=== PATIENT | female | born 1950 | race Caucasian/White ===

== ENCOUNTER 2017-01-29 05:35 | Inpatient (IN) ==
--- NOTE | 2017-01-27 08:38 | HISTORY AND PHYSICAL ---
DATE OF SURGERY: 01/29/2017. HISTORY: Patient is a 66-year-old female referred to me by Dr. Megan Sandoval who has total eversion of the vaginal cuff with a very large broad-based defect proximally. Patient had ulceration of the external vaginal tissue and has been using a pessary over the last several weeks to help her with her defect. However, the patient is strongly desiring to proceed with surgical intervention because of her age being young and her activity level. The patient wishes to proceed to surgical intervention. PAST MEDICAL HISTORY: Positive for a history of rheumatic fever, congestive heart failure, a history of pulmonary emboli with an IVC being placed. PAST SURGICAL HISTORY: Positive for abdominal hysterectomy, exploratory laparotomy for small bowel obstruction, bilateral salpingo-oophorectomy, and appendectomy. DISTRICT SALES REPRESENTATIVE HISTORY: She is noted to be a para 5-0-0-5. ALLERGIES: Codeine. CURRENT MEDICATIONS: Atorvastatin 10, Lasix 40, potassium 10 mEq. FAMILY HISTORY: Positive for colon cancer in her father. SOCIAL HISTORY: Positive for tobacco but stopped 4 years ago. Negative ETOH or drugs. REVIEW OF SYSTEMS: Negative except as above. PHYSICAL EXAMINATION: HEENT: Normocephalic, atraumatic. PERRLA. EOMI. No thyromegaly. CV: Regular rate and rhythm without murmur, gallop, or rub. PULMONARY: Clear. ABDOMEN: Obese with multiple well-healed incisions. : Shows total eversion of the vaginal cuff with a small polyp of the vaginal tissue noted on the right. There are no erosions noted at this time. NEUROLOGIC: Afocal. EXTREMITIES: Without clubbing or cyanosis but she does have edema. VITAL SIGNS: Her BMI was noted to be 33. ASSESSMENT/PLAN: Patient with advanced stage prolapse/total eversion of the vaginal cuff, who is currently being managed with pessary and is wishing to proceed to surgical intervention. The risks and benefits were discussed at length. She understands and is admitted at this time for colpectomy and mid urethral sling with Obtryx. cc: Brandon Fuentes MD
[2017-01-27 10:16] LABS: MANUAL DIFF NEEDED? NO
[2017-01-27 10:23] LABS: BASO% 0.4 % (0.0-0.8); EOS# 0.24 X1000 (0.0-0.7); EOS% 3.3 % (0.0-10.0); HEMATOCRIT 42.7 % (37.0-47.0); IMM GRAN# 0.01 X1000 (0.0-0.04); IMM GRAN% 0.1 % (0.0-0.5); LYMPH# 1.54 X1000 (1.2-3.4); LYMPH% 20.9 % (20.5-51.1); MCH 31.2 PG (27-31); MCHC 32.8 g/dL (33-37); MCV 95.1 FL (81-99); MONO# 0.64 X1000 (0.11-0.59); MONO% 8.7 % (1.7-9.3); MPV 10.2 FL (7.4-10.4); NEUT% 66.6 % (42.2-75.2); PLT 196 X1000 (130-400); RBC 4.49 XMIL (4.2-5.4)
[2017-01-29] MEDS ORDERED: LR 1,000 ML IV SCH (06:35)
[2017-01-29] MEDS ORDERED: PEPCID IV ONE (07:30)
[2017-01-29] MEDS ORDERED: FENTANYL ONE (07:57)
[2017-01-29] MEDS ORDERED: DIPRIVAN 1% ONE (07:58)
[2017-01-29 08:22] LABS: AGAP 9; BUN 18 mg/dL (8-22); CALCIUM 9.3 mg/dL (8.8-10.2); CHLORIDE 102 mmol/L (98-107); COSMO 281; POTASSIUM 3.8 mmol/L (3.5-5.1); SODIUM 139 mmol/L (136-145); TCO2 28 mmol/L (25-35)
[2017-01-29] MEDS ORDERED: SODIUM CHLORIDE 0.9% ONE ×2 (08:48→10:12)
[2017-01-29] MEDS ORDERED: D10W 500 ML ONE (08:48)
[2017-01-29] MEDS ORDERED: SENSORCAINE 0.25%/EPI 1:200,000 ONE ×3 (08:48→10:12)
--- NOTE | 2017-01-29 08:48 | Diag Imaging Result Doc PS360 ---
EXAM: CHEST-PORTABLE HISTORY: hx chf TECHNIQUE: Single view of the chest was performed portably. COMPARISON: None. FINDINGS: The cardiomediastinal silhouette is within normal limits. The pulmonary vasculature is not congested. No infiltrate, effusion, or pneumothorax is appreciated. IMPRESSION: No acute cardiopulmonary abnormality is identified. Electronically signed by Carmen Covington 01/29/2017 8:45 AM
[2017-01-29] MEDS ORDERED: KEFZOL 1 GM/D5W 1 GM/50 ML IVPB ONE (08:57)
[2017-01-29] MEDS ORDERED: TORADOL ONE (09:16)
[2017-01-29] MEDS ORDERED: ZOFRAN ONE (09:17)
[2017-01-29] MEDS ORDERED: EPHEDRINE ONE (09:29)
[2017-01-29] MEDS ORDERED: SODIUM CHLORIDE 0.9% 50 ML ONE (09:30)
[2017-01-29] MEDS ORDERED: QUELICIN (DOSE) ONE ×2 (09:44→09:46)
[2017-01-29] MEDS ORDERED: LASIX ONE (09:48)
[2017-01-29] MEDS ORDERED: ZEMURON ONE (10:00)
--- NOTE | 2017-01-29 10:13 | EKG Report ---
Test Performed on : 01/29/2017 08:59:49 AM Test Reason : pre op Blood Pressure : / mmHG Vent. Rate : 085 BPM Atrial Rate : 085 BPM P-R Int : 206 ms QRS Dur : 098 ms QT Int : 422 ms P-R-T Axes : 065 -02 067 degrees QTc Int : 502 ms Normal sinus rhythm. Nonspecific ST and T wave abnormality Prolonged QT Abnormal ECG No previous ECGs available Unconfirmed Result
[2017-01-29] MEDS ORDERED: ROBINUL ONE ×2 (11:07→11:12)
[2017-01-29] MEDS ORDERED: NEOSTIGMINE ONE ×2 (11:07→11:13)
[2017-01-29] MEDS ORDERED: NS 1,000 ML ONE (11:11)
[2017-01-29] MEDS ORDERED: NORCO-5 PO PRN (12:54)
[2017-01-29] MEDS ORDERED: ZOFRAN ODT PO PRN (12:54)
[2017-01-29] MEDS: LR 1,000 ML IV SCH ×2 (13:00→20:57)
--- NOTE | 2017-01-29 15:14 | OPERATIVE NOTE ---
PROCEDURE DATE: 01/29/2017 PREOPERATIVE DIAGNOSIS: Total vault eversion. POSTOPERATIVE DIAGNOSIS: Total vault eversion, very large enterocele. PROCEDURE: Colpectomy, enterocele repair, mid urethral sling with Obtryx and perineorrhaphy. SURGEON: Dr. Brandon Fuentes. CREW LEADER/CONTROL ROOM OPERATOR: Ryan Cox. ANESTHESIA: General. ESTIMATED BLOOD LOSS: 125 mL. HISTORY: The patient is a 66-year-old female, referred to me for from Dr. Megan Sandoval in the [facility]. The patient was having increasing problems with symptomatic pelvic organ prolapse and, upon discussion with the patient's in the postoperative period he stated that this had been a problem for over 20 years now. We have managed her initially with pessary, however, the day after her pessary had been placed, she had expulsion of the largest Gellhorn pessary with defecation and so the decision was made to proceed to surgical intervention. The patient had an extremely large defect that was very broad-based. The actual tissue outside of the body measured 16 cm and the width of the defect was approximately 12. Genital hiatus was approximately 15 cm. Because of this defect, we had explained to the patient increased risk for possible ureteral injury, and she and her understood and they wished to proceed. OPERATIVE FINDINGS: Consistent with above, however, she was also found to have a very large broad- based enterocele measuring at least 12 cm across the neck of the defect. No other abnormalities beyond what is described. OPERATIVE PROCEDURE: Patient was taken to the operating room and placed ini the supine position. After adequate general anesthesia obtained, she is placed in candy cane stirrups and the defect in the vagina and perineum area was prepped and draped in the usual fashion. The defect was extremely large and extremely wide. We initially started at the apex. She had several areas of ulceration from the length of time this had been outside of her body, and she had a lot of cornification of the tissue throughout. We grasped the defect at the apex with Allis clamps, and we injected approximately 50 mL of 0.25% Marcaine with epinephrine diluted 50% with normal saline in a split-thickness dissection fashion. We had already demarcated the extent of our dissections up to UV neck as well as to the perineal body. We had divided the vagina into quadrants using a marking pen. After doing all this, we then started initially in the anterior compartment with the scalpel following our lines, and we began with our dissection. Using traction and counter traction and a lot of sharp dissection, we were able to dissect off the anterior quadrants. The posterior dissection, as we began very easily entered into the enterocele sac, and we discovered that her defect going up was extremely wide and so decision was made to go ahead and dissect out the entire enterocele sac so that we could try to get better support apically. We changed our dissection layering in the rectovaginal space and then developed a new plane of dissection dissecting out the enterocele sac from the posterior portion and then going up to the UV neck. We did not dissect the enterocele sac off of the bladder. I felt that it was too dangerous to do this with the possibility of having some resultant cystotomy. So upon doing this, we then went to the apex of the neck and using 5-6 layers of Tycron suture, we closed the neck down tying a pursestring-type of fashion. Upon doing this, we then had just the vaginal mucosa posteriorly and the bladder and enterocele sac anteriorly. So, at this point, we then turned our attention towards correction of the defect using a 2.0 Vicryl ligature. We closed the defect in a pursestring fashion at the same level throughout until we had complete imbrication of the defect. We had to take smaller bites in the posterior portion and much larger bites in terms of width between concentric closure sutures in order to make up the large defect anteriorly. Upon doing this, before closing the vaginal mucosa, we performed cystoscopy to ensure that both ureters were effluxing just because of the significance of her defect and we could easily see efflux of urine from both defects. After completion of this, we then closed anterior to posterior the vaginal mucosa. We had complete resolution of the defect. At this time, we then turned our attention towards placement of the sling. The urethra was grasped proximally and distally and another 10 mL of the diluent was injected. I think her total injection amount was approximately 140 mL. Upon doing this, we dissected towards the ischial pubic ramus on each side and then based on the bony landmarks of the obturator foramen and the insertion of the adductor longus, a stab incision was made on the left-hand side. A halo device was introduced through this incision into the head turning machine operator's finger through the obturator membrane and the finger directed the needle out of the vaginal incision. The mesh was attached to it and it was retracted back through the skin. This was performed on the contralateral side in a similar fashion. Cystoscope was reintroduced and again both ureters refluxing there was no evidence of any mesh whatsoever or any other abnormalities of the bladder mucosa other than the redundancy of the mucosa from being corrected. The cystoscope was removed and the Yana clamp was placed in the mid urethral position. The tape was brought out with the Yana clamp. Blue tag was excised. The sheaths were easily removed. Mid urethral incision was then closed with running 2.0 Vicryl ligature. We then turned our attention towards closing down the genital hiatus. Her hiatus was easily 14-16 cm starting out so we made a marko-shaped incision after infiltration of this area with the same diluent. We dissected out the distal levators as well as the bulbocavernosus muscles and, upon doing this, we then plicated this area with interrupted [id number] sutures using 0 Vicryl ligature. The remaining portion was then similar to a second-degree episiotomy which was repaired with 2.0 Vicryl ligature in the typical fashion. A Flores catheter was placed. Sponge count, instrument count, needle counts correct x3. Packs and drains were Flores. Patient was awakened and taken to the recovery room with vital signs stable. cc: Brandon Fuentes MD
[2017-01-29] MEDS ORDERED: ULTRACET 37.5MG/325MG PO PRN (17:00)
--- NOTE | 2017-01-29 17:17 | PROGRESS NOTE ---
DATE: 01/29/2017 TIME: Approximately 4:50 p.m. SUBJECTIVE: Patient is sitting up on the side of bed and eating dinner, stating that it is tasting good and having no problems. OBJECTIVE: Afebrile. Vital signs stable. Urine output is clear. ASSESSMENT AND PLAN: Routine postoperative care. Voiding trial in the a.m. DC home in the a.m. after completion of voiding trial. cc: Brandon Fuentes MD
[2017-01-29] MEDS: TORADOL IV SCH (18:12)
[2017-01-29] MEDS: COLACE PO SCH (20:58)
[2017-01-29] MEDS: PERIDEX MT SCH (20:58)
[2017-01-29] MEDS ORDERED: LIPITOR PO SCH (21:00)
[2017-01-30] MEDS: TORADOL IV SCH ×2 (00:48→05:44)
[2017-01-30] MEDS: LR 1,000 ML IV SCH (04:39)
[2017-01-30] MEDS: PERIDEX MT SCH (08:35)
[2017-01-30] MEDS: COLACE PO SCH (08:35)
[2017-01-30 09:00] VITALS: BP 106/54
[2017-01-30] MEDS ORDERED: KLOR-CON PO SCH (09:00)
[2017-01-30] MEDS ORDERED: LASIX PO SCH (09:00)
--- NOTE | 2017-01-30 11:31 | DISCHARGE SUMMARY ---
ADMISSION DATE: 01/29/2017 DISCHARGE DATE: 01/30/2017 PRINCIPAL DIAGNOSIS: Symptomatic pelvic organ prolapse. PROCEDURE: Colpectomy, removal of large enterocele, perineorrhaphy, and Obtryx. HISTORY: The patient is a 66-year-old female who is followed by her doctor in the [facility], who was having increasing problems with symptomatic pelvic organ prolapse. In review of the patient's history with her , the patient's states this has been a problem for over 20 years. On evaluation, she was found to have a 16 cm x 14 cm vault eversion. HOSPITAL COURSE: The patient underwent the above-stated procedure. Blood loss at that time was 125 mL. Postoperative course has been uncomplicated. She is already voiding and being discharged home with instructions to follow up in 3 weeks. DISCHARGE MEDICATIONS: Tramadol and Colace. DISCHARGE INSTRUCTIONS: She was instructed on regular diet and decreased activity. cc: Brandon Fuentes MD MTDD
== END 2017-01-30 09:45 | disposition home or self-care (01) ==
LOC: P.WC 05:35 → EDBD 05:35
PROVIDERS: ADMIT Obstetrics & Gynecology; ATTEND Obstetrics & Gynecology